=== PATIENT | male | born 1975 | race Caucasian/White ===

== ENCOUNTER 2022-05-30 13:21 | Emergency (ER) | payer SELFPAY ==
[2022-05-30] VITALS (8 sets, daily range): BP systolic 118–138; BP diastolic 76–88
[~2022-05-30] VITALS: Ht 185.4 cm; Wt 80.0 kg
[2022-05-30] MEDS ORDERED: MEDDOSEPAK PO (14:44)
[2022-05-30] MEDS ORDERED: KEFLEX500 MG PO (14:44)
== END 2022-05-30 14:58 | disposition home or self-care (01) | DRG 603 ==
LOC: ED 13:21
DX: L08.9 Local infection of the skin and subcutaneous tissue, unspecified (principal); J44.1 Chronic obstructive pulmonary disease with (acute) exacerbation; F17.210 Nicotine dependence, cigarettes, uncomplicated

== ENCOUNTER 2023-03-24 12:00 | Emergency (ER) | payer SELFPAY ==
[~2023-03-24] VITALS: Ht 185.4 cm; Wt 77.0 kg
[~2023-03-24 12:00] MED LIST: KEFLEX500 MG PO; MEDDOSEPAK PO
[2023-03-24] MEDS ORDERED: TRAMADOL HYDROC50 M1 PO (13:06)
[2023-03-24] MEDS ORDERED: NAPROXEN500 MG PO (13:06)
[2023-03-24 13:09] VITALS: BP 109/77
== END 2023-03-24 13:19 | disposition home or self-care (01) | DRG 563 ==
LOC: ED 12:00
DX: S93.402A Sprain of unspecified ligament of left ankle, initial encounter (principal); W17.89XA Other fall from one level to another, initial encounter

== ENCOUNTER 2023-05-04 12:03 | Emergency (ER) | payer SELFPAY ==
[~2023-05-04] VITALS: Ht 185.4 cm; Wt 73.0 kg
[~2023-05-04 12:03] MED LIST changes: +NAPROXEN500 MG PO; +TRAMADOL HYDROC50 M1 PO
[2023-05-04] MEDS ORDERED: TRAMADOL HYDROC50 M1 PO (12:23)
[2023-05-04] MEDS ORDERED: PENICILLN VK500 MG PO (12:23)
[2023-05-04] MEDS ORDERED: NAPROXEN500 MG PO (12:23)
[2023-05-04 12:38] VITALS: BP 130/87
== END 2023-05-04 12:40 | disposition home or self-care (01) | DRG 159 ==
LOC: ED 12:03
DX: K04.7 Periapical abscess without sinus (principal); K02.9 Dental caries, unspecified; K08.409 Partial loss of teeth, unspecified cause, unspecified class; S02.5XXA Fracture of tooth (traumatic), initial encounter for closed fracture; X58.XXXA Exposure to other specified factors, initial encounter

== ENCOUNTER 2023-05-09 12:57 | Emergency (ER) | payer SELFPAY ==
[~2023-05-09] VITALS: Ht 185.4 cm; Wt 74.8 kg
[~2023-05-09 12:57] MED LIST changes: +PENICILLN VK500 MG PO
[2023-05-09 13:17] VITALS: BP 167/94
[2023-05-09] MEDS ORDERED: CLINDAMYCIN HY150 MG PO (13:57)
[2023-05-09] MEDS ORDERED: PREDNISONE20 MG PO (13:57)
[2023-05-09 14:04] VITALS: BP 167/94
== END 2023-05-09 14:24 | disposition home or self-care (01) | DRG 159 ==
LOC: ED 12:57
DX: K04.7 Periapical abscess without sinus (principal)

== ENCOUNTER 2023-06-24 09:25 | Emergency (ER) | payer SELFPAY ==
[2023-06-24] VITALS (12 sets, daily range): BP systolic 126–155; BP diastolic 87–98
[~2023-06-24] VITALS: Ht 185.4 cm; Wt 77.1 kg
[~2023-06-24 09:25] MED LIST changes: +CLINDAMYCIN HY150 MG PO; +PREDNISONE20 MG PO
[2023-06-24 10:58] LABS: URINE BILIRUBIN - DIPSTICK Negative (NEGATIVE); URINE BLOOD DIPSTICK Negative (NEGATIVE); URINE GLUCOSE - DIPSTICK Negative (NEGATIVE); URINE KETONE Negative (NEGATIVE); URINE LEUK ESTERASE Negative (NEGATIVE); URINE NITRITE - DIPSTICK Negative (Negative); URINE PH 7.5 (4.5-8.0); URINE PROTEIN - DIPSTICK Negative (NEG-TRACE); URINE SPECIFIC GRAVITY 1.015; URINE UROBILINOGEN - DIPSTICK 0.2 E.U./dL (0.2)
[2023-06-24 10:59] LABS: URINE COLOR Yellow
== END 2023-06-24 14:15 | disposition home or self-care (01) | DRG 866 ==
LOC: ED 09:25
PROVIDERS: Family Medicine
DX: B34.9 Viral infection, unspecified (principal); F17.210 Nicotine dependence, cigarettes, uncomplicated; Z20.822 Contact with and (suspected) exposure to COVID-19

== ENCOUNTER 2024-05-02 15:11 | Emergency (ER) | payer SELFPAY ==
[~2024-05-02] VITALS: Ht 185.4 cm; Wt 81.0 kg
[2024-05-02] VITALS (9 sets, daily range): BP systolic 114–154; BP diastolic 78–103
[2024-05-02] MEDS ORDERED: ONDANSETRON 4 MG/TAB ODT SL ONE (15:30)
[2024-05-02 15:46] LABS: BASO% 0.5 % (0-3); EOS% 1.2 % (0-8); HEMATOCRIT 40.1 % (39.0-50.0); HEMOGLOBIN 13.8 g/dl (14.0-18.0); IMMATURE GRANULOCYTES 0.2 % (0.0-5.0); LYMPH% 23.7 % (15-41); MEAN CELL VOLUME 91.6 fL CALC (80.0-100.0); MEAN CORPUSCULAR HGB 31.5 pG CALC (26.0-32.0); MEAN CORPUSCULAR HGB CONC 34.4 g/dL CAL (32.0-36.0); MONO% 7.6 % (2-13); NEUT# 5.59 thou/uL (1.82-7.42); NEUT% 66.8 % (42-76); RED BLOOD COUNT 4.38 mill/uL (4.70-6.10); RED CELL DISTRI WIDTH 12.8 % (11.5-15.5)
[2024-05-02 16:00] LABS: ALBUMIN 4.4 g/dL (3.2-5.0); BILIRUBIN, TOTAL 0.8 mg/dL (0.2-1.3); CREATININE 0.9 mg/dL (0.7-1.3); POTASSIUM 3.7 mmol/l (3.5-5.1); TOTAL PROTEIN 7.3 g/dL (6.3-8.2)
[2024-05-02 16:35] LABS: URINE BILIRUBIN - DIPSTICK Negative (NEGATIVE); URINE BLOOD DIPSTICK Trace-intact (NEGATIVE); URINE COLOR Yellow; URINE GLUCOSE - DIPSTICK Negative (NEGATIVE); URINE KETONE Negative (NEGATIVE); URINE LEUK ESTERASE Negative (NEGATIVE); URINE NITRITE - DIPSTICK Negative (Negative); URINE PH 5.5 (4.5-8.0); URINE PROTEIN - DIPSTICK Negative (NEG-TRACE); URINE UROBILINOGEN - DIPSTICK 0.2 E.U./dL (0.2)
== END 2024-05-02 17:28 | disposition home or self-care (01) | DRG 948 ==
LOC: ED 15:11
PROVIDERS: Nurse Practitioner Family
DX: R53.83 Other fatigue (principal); F17.200 Nicotine dependence, unspecified, uncomplicated; Z20.822 Contact with and (suspected) exposure to COVID-19

== ENCOUNTER 2024-05-10 10:46 | Emergency (ER) | payer SELFPAY ==
[~2024-05-10] VITALS: Ht 185.4 cm; Wt 77.0 kg
[2024-05-10 10:58] VITALS: BP 129/83
[2024-05-10 11:00] VITALS: BP 114/78
[2024-05-10] MEDS ORDERED: CEPHALEXIN500 M1 PO (11:04)
[2024-05-10] MEDS ORDERED: BACTRIM DS1 TAB PO (11:04)
[2024-05-10 11:11] VITALS: BP 114/78
== END 2024-05-10 11:19 | disposition home or self-care (01) | DRG 603 ==
LOC: ED 10:46
DX: L03.114 Cellulitis of left upper limb (principal); F17.200 Nicotine dependence, unspecified, uncomplicated

== ENCOUNTER 2024-11-09 17:27 | Emergency (ER) | payer SELFPAY ==
[2024-11-09] VITALS (11 sets, daily range): BP systolic 128–164; BP diastolic 81–104
[~2024-11-09] VITALS: Ht 185.4 cm; Wt 82.9 kg
[~2024-11-09 17:27] MED LIST changes: +BACTRIM DS1 TAB PO; +CEPHALEXIN500 M1 PO
[2024-11-09 18:43] LABS: BASO% 0.5 % (0-3); EOS% 1.5 % (0-8); HEMATOCRIT 45.6 % (39.0-50.0); HEMOGLOBIN 15.1 g/dl (14.0-18.0); IMMATURE GRANULOCYTES 0.3 % (0.0-5.0); MEAN CELL VOLUME 94.4 fL CALC (80.0-100.0); MEAN CORPUSCULAR HGB 31.3 pG CALC (26.0-32.0); MEAN CORPUSCULAR HGB CONC 33.1 g/dL CAL (32.0-36.0); MONO% 8.3 % (2-13); NEUT# 6.84 thou/uL (1.82-7.42); NEUT% 64.4 % (42-76); RED BLOOD COUNT 4.83 mill/uL (4.70-6.10); RED CELL DISTRI WIDTH 12.9 % (11.5-15.5)
[2024-11-09 18:57] LABS: ALBUMIN 4.7 g/dL (3.2-5.0); BILIRUBIN, TOTAL 1.3 mg/dL (0.2-1.3); CREATININE 0.9 mg/dL (0.7-1.3); POTASSIUM 3.8 mmol/l (3.5-5.1); TOTAL PROTEIN 7.9 g/dL (6.3-8.2)
[2024-11-09 19:09] LABS: URINE BILIRUBIN - DIPSTICK Negative (NEGATIVE); URINE BLOOD DIPSTICK Small (NEGATIVE); URINE COLOR Yellow; URINE GLUCOSE - DIPSTICK Negative (NEGATIVE); URINE KETONE 15 mg/dL (NEGATIVE); URINE LEUK ESTERASE Negative (NEGATIVE); URINE NITRITE - DIPSTICK Negative (Negative); URINE PH 5.5 (4.5-8.0); URINE PROTEIN - DIPSTICK Negative (NEG-TRACE); URINE UROBILINOGEN - DIPSTICK 0.2 E.U./dL (0.2)
[2024-11-09 19:16] LABS: URINE RBC 0-2 RBC/hpf (0-5)
[2024-11-09] MEDS ORDERED: MORPHINE SULFATE 4 MG/ML VIAL IV ONE (21:10)
[2024-11-10] MEDS ORDERED: LEVOFLOXACIN500MG PO (16:13)
[2024-11-10] MEDS ORDERED: HYDROCO/APAP1 TA9 PO (16:13)
== END 2024-11-09 22:36 | disposition home or self-care (01) | DRG 728 ==
LOC: ED 17:27
PROVIDERS: Family Medicine
DX: N45.3 Epididymo-orchitis (principal); F17.200 Nicotine dependence, unspecified, uncomplicated
CPT/HCPCS: Q9967